=== PATIENT | male | born 1940 | race Caucasian/White ===

== ENCOUNTER 2024-08-28 14:33 | Inpatient (IN) ==
[2024-08-28 15:33] LABS: Urine Appearance CLEAR (CLEAR); Urine Blood NEGATIVE (NEG - TRACE); Urine Color YELLOW (STRAW/YELL.); Urine Urobilinogen Normal (NORMAL)
--- NOTE | 2024-08-28 15:45 | Emergency Department Note ---
HPI - General Adult General Chief complaint: SOB -Shortness of Breath Stated complaint: jl feet swell,Unable to urinate, loss of appetite Source: patient Mode of arrival: Limitations: no limitations Related Data Home Medications Medication Instructions Recorded Confirmed amlodipine 10 mg-benazepril 40 mg cap 01/04/24 capsule amlodipine 5 mg tablet mg 01/04/24 carvedilol 3.125 mg tablet mg 01/04/24 glipizide 10 mg tablet mg 01/04/24 nifedipine 30 mg tablet,extended mg PO 01/04/24 release simvastatin 40 mg tablet mg 01/04/24 sodium polystyrene sulfonate 15 ml 01/04/24 gram-sorbitol 20 gram/60 mL oral susp (SPS (with sorbitol)) tamsulosin 0.4 mg capsule mg PO 01/04/24 Allergies Allergy/AdvReac Type Severity Reaction Status Date / Time codeine Allergy Mild Verified 08/28/24 14:50 PFSH PFSH Medical History (Updated 01/04/24 @ 11:35 by Radha Hardwick RN) CAD (coronary artery disease) Diabetes Heart attack CKD (chronic kidney disease) HTN (hypertension) Social History Smoking status: former smoker Problems where you live: no known problems Highest level of school completed/degree received: high school Exam Constitutional: Vital Signs - 24 hr 08/28/24 14:40 08/28/24 16:00 Temperature 98.4 F Pulse Rate 74 77 Respiratory Rate 20 20 Blood Pressure 132/65 156/71 Pulse Oximetry 89 L 94 L Oxygen Delivery Me thod Room Air Nasal Cannula Oxygen Flow Rate 2 Course Vital Signs Vital signs: Vital Signs Temperature 98.4 F 08/28/24 14:40 Pulse Rate 74 08/28/24 14:40 Respiratory Rate 20 08/28/24 14:40 Blood Pressure 132/65 08/28/24 14:40 Pulse Oximetry 89 L 08/28/24 14:40 Oxygen Delivery Method Room Air 08/28/24 14:40 Temperature 98.6 F 08/29/24 00:00 Pulse Rate 68 08/29/24 00:00 Respiratory Rate 19 08/29/24 00:00 Blood Pressure 142/63 08/29/24 00:00 Pulse Oximetry 93 L 08/29/24 00:00 Oxygen Delivery Method Nasal Cannula 08/29/24 00:00 Oxygen Flow Rate 2 08/28/24 18:00 Medical Decision Making MDM Narrative Medical decision making narrative: Renal retention, CHF, COPD exacerbation, pneumonia, arthritis, BPH, UTI, prostatitis, Differential Diagnosis Differential Diagnosis: Renal retention, CHF, COPD exacerbation, pneumonia, arthritis, BPH, UTI, pr Medical Records Medical records reviewed: Yes I reviewed the patient's medical records Lab Data Lab results reviewed: Yes I reviewed the patient's lab results Labs: Lab Results 08/28/24 08/28/24 08/28/24 Range/Units 15:13 15:19 15:19 WBC (3.7-9.6) K/uL RBC (4.40-5.80) M/uL Hgb (14.0-17.4) gm/dL Hct (41.3-50.1) % MCV (81.9-96.5) fl MCH (27.6-33.7) pg MCHC (33.0-35.7) g/dl RDW (11.0-14.8) % Plt Count (142-355) K/uL MPV (6.0-10.4) fl Gran % (49.1-73.1) % Lymph % (Auto) (17.6-39.05) % Andrew % (Auto) (4.5-10.7) % Eos % (Auto) (0.0-4.0) % Baso % (Auto) (0.0-1.3) Lymph # (Auto) (0.8-2.9) [place] # (Auto) (0.2-0.8) Eos # (Auto) (0.0-0.3) Baso # (Auto) (0.0-0.1) Absolute Gran (auto) (2.0-6.2) ABG pH 7.41 (7.35-7.45) ABG pCO2 57 H* (35-45) mmHg ABG pO2 53 L* 157 (60-100) mmHg ABG PO2/FiO2 Ratio 0.34 ABG HCO3 36.4 H (22-26) mmo1/L ABG Total CO2 37.8 mmo1/L ABG O2 Saturation 87 L* (92-100) % ABG Base Excess 9.5 H (-2-2) mmo1/L A-a O2 Gradient 104 mmHg Respiratory Index 2.0 H (0-1) FiO2 32 % Sodium 143 (136-145) mmol/L Potassium 2.9 L (3.6-5.2) mmol/L Chloride 103.0 (98-107) mmol/L Carbon Dioxide 32 (21-32) mmol/L Anion Gap 8.0 (4-14) mEq/L BUN 23 H (7-18) mg/dL Creatinine 3.9 H* (0.6-1.3) mg/dL Estimated GFR 14.7 (>59.9) Glucose 30 L* (70-110) mg/dL Calcium 8.3 L (8.5-10.1) mg/dL Total Bilirubin 0.24 (0.0-1.0) mg/dL AST 26 (15-37) U/L ALT 16 L (30-65) U/L Alkaline Phosphatase 104 (50-136) U/L Troponin I High Sens (4.0-60.4) ng/L B-Natriuretic Peptide (0-100) pg/mL Total Protein 6.1 L (6.4-8.2) g/dL Albumin 2.4 L (3.4-5.0) g/dL Urine Color Yellow (STRAW/YELL.) Urine Appearance Clear (CLEAR) Ur Specific [place] 1.030 (1.001-1.035) Urine Protein 3+ (NEGATIVE) Urine Glucose (UA) Normal (NORMAL) Urine Ketones Negative (NEGATIVE) Urine Occult Blood Negative (NEG - TRACE) Urine Nitrite Negative (NEGATIVE) Urine Bilirubin Negative (NEGATIVE) Urine Urobilinogen Normal (NORMAL) Ur Leukocyte Esterase Negative (NEGATIVE) Fluid pH 6.0 (5 - 9) 08/28/24 08/28/24 Range/Units 15:45 17:40 WBC 9.2 (3.7-9.6) K/uL RBC 3.7 L (4.40-5.80) M/uL Hgb 11.5 L (14.0-17.4) gm/dL Hct 34.6 L (41.3-50.1) % MCV 94.5 (81.9-96.5) fl MCH 31.3 (27.6-33.7) pg MCHC 33.1 (33.0-35.7) g/dl RDW 16.5 H (11.0-14.8) % Plt Count 306 (142-355) K/uL MPV 7.7 (6.0-10.4) fl Gran % 71.5 (49.1-73.1) % Lymph % (Auto) 19.0 (17.6-39.05) % [place] % (Auto) 6.3 (4.5-10.7) % Eos % (Auto) 2.7 (0.0-4.0) % Baso % (Auto) 0.5 (0.0-1.3) Lymph # (Auto) 1.7 (0.8-2.9) [place] # (Auto) 0.6 (0.2-0.8) Eos # (Auto) 0.2 (0.0-0.3) Baso # (Auto) 0.1 (0.0-0.1) Absolute Gran (auto) 6.6 H (2.0-6.2) ABG pH (7.35-7.45) ABG pCO2 (35-45) mmHg ABG pO2 (60-100) mmHg ABG PO2/FiO2 Ratio ABG HCO3 (22-26) mmo1/L ABG Total CO2 mmo1/L ABG O2 Saturation (92-100) % ABG Base Excess (-2-2) mmo1/L A-a O2 Gradient mmHg Respiratory Index (0-1) FiO2 % Sodium (136-145) mmol/L Potassium (3.6-5.2) mmol/L Chloride (98-107) mmol/L Carbon Dioxide (21-32) mmol/L Anion Gap (4-14) mEq/L BUN (7-18) mg/dL Creatinine (0.6-1.3) mg/dL Estimated GFR (>59.9) Glucose (70-110) mg/dL Calcium (8.5-10.1) mg/dL Total Bilirubin (0.0-1.0) mg/dL AST (15-37) U/L ALT (30-65) U/L Alkaline Phosphatase (50-136) U/L Troponin I High Sens 44.80 (4.0-60.4) ng/L B-Natriuretic Peptide 408.0 H (0-100) pg/mL Total Protein (6.4-8.2) g/dL Albumin (3.4-5.0) g/dL Urine Color (STRAW/YELL.) Urine Appearance (CLEAR) Ur Specific [place] (1.001-1.035) Urine Protein (NEGATIVE) Urine Glucose (UA) (NORMAL) Urine Ketones (NEGATIVE) Urine Occult Blood (NEG - TRACE) Urine Nitrite (NEGATIVE) Urine Bilirubin (NEGATIVE) Urine Urobilinogen (NORMAL) Ur Leukocyte Esterase (NEGATIVE) Fluid pH (5 - 9) ECG Data Attestation: I have reviewed the pertinent ECG results. Prior ECG tracings: available for review Interpretation: EKG-atrial fibrillation,. Ventricular premature complexes, repolarization abnormal, rate 86, RR of 700 Smoking Cessation Time spent discussing smoking cessation with patient: 3 to 10 minutes Discharge Plan Discharge Patient Disposition: Admitted As Observation Condition: Stable Clinical Impression: Acute kidney injury superimposed on chronic kidney disease, Congestive heart failure, Acute exacerbation of chronic obstructive pulmonary disease, Acute on chronic urinary retention Interventions: ED Discharge Assessment Last Done: 08/28/24 18:22 ED Discharge Vital Sign Last Done: 08/28/24 18:23 Emergency Department Charge Sheet Last Done: 08/28/24 18:23 Time of Disposition: 17:08 Discharge Date/Time: 08/28/24 18:24
[2024-08-28 15:46] LABS: Potassium 2.9 mmol/L (3.6-5.2)
[2024-08-28 15:46] LABS: pH ABG 7.41 (7.35-7.45)
[2024-08-28 15:47] LABS: PCO2 ABG 57 mmHg (35-45); PO2 ABG 53 mmHg (60-100)
[2024-08-28 15:48] LABS: Base Excess ABG 9.5 mmo1/L (-2-2); Oxygen Saturation ABG 87 % (92-100)
[2024-08-28] MEDS ORDERED: DEXTROSE 50 % 25 GM/50 ML SYRINGE INJ ONE (15:50)
[2024-08-28 15:53] LABS: Basophils #(Absolute) Auto 0.1 (0.0-0.1); Basophils%(Percent) Auto 0.5 (0.0-1.3); Eosinophils#(Absolute)Auto 0.2 (0.0-0.3); Eosinophils%(Percent) Auto 2.7 % (0.0-4.0); Granulocytes % - Auto 71.5 % (49.1-73.1); Granulocytes#(Absolute)- Auto 6.6 (2.0-6.2); Hematocrit 34.6 % (41.3-50.1); Mean Corpuscular Volume 94.5 fl (81.9-96.5); Monocytes #(Absolute)- Auto 0.6 (0.2-0.8); Monocytes %(Percent)- Auto 6.3 % (4.5-10.7); Platelet Count 306 K/uL (142-355); White Blood Count 9.2 K/uL (3.7-9.6)
[2024-08-28] MEDS: DEXTROSE 50 % 25 GM/50 ML SYRINGE INJ ONE (15:53)
[2024-08-28] MEDS ORDERED: polyethylene glycoL 3350 17 GM POWD.PACK PO PRN (17:08)
[2024-08-28] MEDS ORDERED: MAGNESIUM, ALUMINUM HYDROXIDE 30 ML ORAL.SUSP PO PRN (17:08)
[2024-08-28] MEDS ORDERED: ACETAMINOPHEN 500 MG TABLET PO PRN (17:08)
[2024-08-28] MEDS ORDERED: DOCUSATE SODIUM 100 MG CAPSULE PO PRN (17:08)
[2024-08-29] MEDS: PANTOPRAZOLE SODIUM 40 MG TABLET.DR PO SCH (00:05)
[2024-08-29] MEDS: 0.9 % SODIUM CHLORIDE 1000 ML 1,000 ML IV SCH (00:23)
[2024-08-29] MEDS: TAMSULOSIN HCL 0.4 MG CAPSULE PO SCH ×2 (01:26→08:08)
[2024-08-29 04:56] LABS: Basophils%(Percent) Auto 0.5 (0.0-1.3); Eosinophils#(Absolute)Auto 0.5 (0.0-0.3); Eosinophils%(Percent) Auto 4.9 % (0.0-4.0); Granulocytes % - Auto 59.9 % (49.1-73.1); Granulocytes#(Absolute)- Auto 5.5 (2.0-6.2); Hematocrit 33.1 % (41.3-50.1); Mean Corpuscular Volume 93.2 fl (81.9-96.5); Monocytes #(Absolute)- Auto 0.9 (0.2-0.8); Monocytes %(Percent)- Auto 9.5 % (4.5-10.7); Platelet Count 285 K/uL (142-355); White Blood Count 9.3 K/uL (3.7-9.6)
[2024-08-29 05:09] LABS: Potassium 2.5 mmol/L (3.6-5.2)
[2024-08-29] MEDS: FUROSEMIDE 20 MG/2 ML VIAL IV SCH (10:18)
[2024-08-29] MEDS: POTASSIUM CHLORIDE 20 MEQ TAB.ER.PRT PO ONE ×2 (10:18→11:47)
--- NOTE | 2024-08-29 11:12 | History & Physical Report ---
<Statement entered by Jimi Holden NP - 08/30/24 08:13> I was contacted by the [facility] floor concerning increased shortness of breath on this patient. I evaluated the patient at bedside and found him to be slightly short of breath with increased work of breathing. Breath sounds showed mild rales bilaterally. Patient had been prescribed Lasix 40 mg IV however has not been given it. Nurse states that the patient had a hypotensive blood pressure at 90s over 60sHowever this was not confirmed with a manual blood pressure. Lasix had been withheld on the patient. After examination of the patient I found the blood pressure to be 177/90 and ordered that the patient be given Lasix 40 mg IVP. Repeat chest x-ray was performed which shows worsening of infiltrates. BNP is increasing slightly. Patient was placed on the Ventimask at 40 by respiratory. Patient appears to be breathing much better. 0720I spoke with Deep Haq nurse practitioner hospitalist concerning this patient. He is aware of the change in the patient's respiratory status and the interventions performed to improve. This documentation has been reviewed and approved. H&P: HPI History of Present Illness Chief complaint: acute on chronic renal injury, urinary retention Narrative: Mr. Bey was admitted on 08/28/24 from the ED with multiple complaints of SOB, BLE edema, decreased urine output. He has no outstanding complaint this morning other than the ones he had on arrival. BLE edema is +2-3. CBC and UA is within normal limits, while renal function appears to be at his baseline of BUN 22, creatinine 3.9, and patient states that he has only been voiding twice daily. K has dropped to 2.5 this morning. He does have intermittent SOB but has home O2 since last year and states that he is using it more frequently. ABG did show pO2 of 53 on admit. CXR was negative. Review of Systems Status of ROS 10 or more systems reviewed and unremark able except as noted in history and below Cardiovascular Reports: edema, swelling of feet/ankles and other (intermittent SOB, on home O2) Respiratory Reports: shortness of breath [facility] Medical History (Updated 08/29/24 @ 11:12 by Deep Haq NP) CHF (congestive heart failure) CAD (coronary artery disease) Diabetes Heart attack CKD (chronic kidney disease) HTN (hypertension) Surgical History (Updated 08/29/24 @ 11:23 by Deep Haq NP) Previous back surgery Social History Smoking status: former smoker Problems where you live: no known problems Highest level of school completed/degree received: high school Meds Home Medications and Allergies Home Medications Medication Instructions Recorded Confirmed Type amlodipine 10 mg-benazepril 40 mg 1 cap PO DAILY 01/04/24 08/29/24 History capsule amlodipine 5 mg tablet 5 mg PO DAILY 01/04/24 08/29/24 History carvedilol 3.125 mg tablet 3.125 mg PO BID 01/04/24 08/29/24 History glipizide 10 mg tablet 10 mg PO BID 01/04/24 08/29/24 History nifedipine 30 mg tablet,extended 30 mg PO DAILY 01/04/24 08/29/24 History release simvastatin 40 mg tablet 40 mg PO BEDTIME 01/04/24 08/29/24 History sodium polystyrene sulfonate 15 30 ml PO BID 01/04/24 08/29/24 History gram-sorbitol 20 gram/60 mL oral susp (SPS (with sorbitol)) tamsulosin 0.4 mg capsule 0.4 mg PO BID 01/04/24 08/29/24 History gabapentin 100 mg capsule 100 mg PO BID 08/29/24 08/29/24 History omeprazole 40 mg capsule,delayed 40 mg PO DAILY 08/29/24 08/29/24 History release Allergies Allergy/AdvReac Type Severity Reaction Status Date / Time codeine Allergy Mild Verified 08/28/24 14:50 Exam Constitutional: normal general appearance Vital Signs - 24 hr 08/28/24 14:40 08/28/24 16:00 08/28/24 18:00 Temperature 98.4 F Pulse Rate 74 77 69 Pulse Rate [Bilate ral] Respiratory Rate 20 20 20 Blood Pressure 132/65 156/71 151/61 Blood Pressure [Ri ght Arm] Pulse Oximetry 89 L 94 L 93 L Oxygen Delivery Me thod Room Air Nasal Cannula Nasal Cannula Oxygen Flow Rate 2 2 08/28/24 18:23 08/28/24 20:00 08/29/24 00:00 Temperature 98.3 F 98.6 F Pulse Rate 69 Pulse Rate [Bilate ral] 55 L 68 Respiratory Rate 20 20 19 Blood Pressure 151/61 Blood Pressure [Ri ght Arm] 119/86 142/63 Pulse Oximetry 94 L 94 L 93 L Oxygen Delivery Me thod Nasal Cannula Nasal Cannula Oxygen Flow Rate 08/29/24 04:00 08/29/24 07:44 Temperature 98.5 F 97.6 F Pulse Rate Pulse Rate [Bilate ral] 53 L 62 Respiratory Rate 17 19 Blood Pressure Blood Pressure [Ri ght Arm] 157/83 153/64 Pulse Oximetry 91 L 91 L Oxygen Delivery Me thod Nasal Cannula Nasal Cannula Oxygen Flow Rate 2 HENMT: normocephalic, head/scalp atraumatic, hearing grossly normal bilaterally, external ears normal, EACs normal, nasal mucous membranes normal, external nose normal and oral mucous membranes normal Eyes: PERRL, EOMs intact bilaterally, conjunctivae normal, no scleral icterus, no papilledema, fundi normal bilaterally and alignment normal Neck/C-Spine: visual inspection normal, trachea midline, cervical spine nontender and cervical full ROM noted Chest: inspection of chest normal and palpation of chest normal Respiratory: breath sounds equal bilaterally, normal respiratory effort and clear to auscultation bilaterally Cardiovascular: normal heart rate noted, regular rhythm noted, no gallop, no rub, no murmur and no clicks Gastrointestinal: abdomen normal to inspection, abdomen soft to palpation, nontender to palpation, nondistended and normoactive bowel sounds Genitourinary: no CVA tenderness, bladder normal to palpation and external appearance normal Back/Pelvis: spine normal to inspection Extremities: normal to inspection (+2-3 BLE edema) 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, no movement abnormality noted, no focal motor deficit noted, no sensory deficits noted, deep tendon reflexes 2+ bilaterally, gait normal, coordination normal and GCS normal Skin: skin color normal Assessment and Plan Assessment and Plan (1) CHF (congestive heart failure): Code(s): I50.9 - Heart failure, unspecified (2) Hypoxia: Code(s): R09.02 - Hypoxemia (3) Hypokalemia: Code(s): E87.6 - Hypokalemia Plan #1 Admit VS q4 Tele 1999 ADA diet Lasix 20mg IV BID #2 O2 NC #3 KCL 40meq now and TID Results Labs Labs: CBC 08/28/24 08/29/24 Range/Units 15:45 04:30 WBC 9.2 9.3 (3.7-9.6) K/uL RBC 3.7 L 3.6 L (4.40-5.80) M/uL Hgb 11.5 L 11.1 L (14.0-17.4) gm/dL Hct 34.6 L 33.1 L (41.3-50.1) % Plt Count 306 285 (142-355) K/uL Gran % 71.5 59.9 (49.1-73.1) % Lymph % (Auto) 19.0 25.2 (17.6-39.05) % [place] % (Auto) 6.3 9.5 (4.5-10.7) % Eos % (Auto) 2.7 4.9 H (0.0-4.0) % Baso % (Auto) 0.5 0.5 (0.0-1.3) Lymph # (Auto) 1.7 2.3 (0.8-2.9) [place] # (Auto) 0.6 0.9 H (0.2-0.8) Eos # (Auto) 0.2 0.5 H (0.0-0.3) Baso # (Auto) 0.1 0.0 (0.0-0.1) Absolute Gran (auto) 6.6 H 5.5 (2.0-6.2) CMP 08/28/24 08/29/24 15:13 04:30 Sodium 143 145 Potassium 2.9 L 2.5 L Chloride 103.0 104.0 Carbon Dioxide 32 35 H BUN 23 H 22 H Creatinine 3.9 H* 3.9 H* Glucose 30 L* 83 Calcium 8.3 L 7.9 L Liver Function 08/28/24 08/29/24 Range/Units 15:13 04:30 Total Bilirubin 0.24 0.19 (0.0-1.0) mg/dL AST 26 14 L (15-37) U/L ALT 16 L 11 L (30-65) U/L Alkaline Phosphatase 104 93 (50-136) U/L Albumin 2.4 L 2.2 L (3.4-5.0) g/dL Urine 08/28/24 15:13 Urine Color Yellow Urine Appearance Clear Ur Specific [place] 1.030 Urine Protein 3+ Urine Glucose (UA) Normal ABG ABG results: 08/28/24 15:19 ABG pH 7.41 ABG pCO2 57 H* ABG pO2 157 ABG HCO3 36.4 H ABG Total CO2 37.8 ABG O2 Saturation 87 L* ABG Base Excess 9.5 H Imaging Imaging ordered: Chest x-ray Radiologist's impression: [place] [address] [place] [address] XRay Report Signed Patient: German Bey MR#: [id number] : 1940 Acct:[id number] Age/Sex: 84 / M ADM Date: 08/28/24 Loc: [place] 1108-[address]: Deep Haq NP Ordering Physician: Izabela Lira DO Date of Service: 08/28/24 Procedure(s): XR chest 2V Accession Number(s): [id number] cc: Deep Haq NP; Izabela Lira DO~ EXAM: CHEST 2 VIEWS HISTORY: dyspnea and swellingdyspnea and swelling; COMPARISON: August 15, 2023 TECHNIQUE: Frontal and lateral views of the chest were submitted for interpretation. FINDINGS: The cardiomediastinal silhouette is within normal limits. Lungs show no focal consolidation, pneumothorax, or pleural fluid. Visualized bony structures are within normal limits. IMPRESSION: No acute cardiopulmonary process. THIS IS AN ELECTRONICALLY VERIFIED FINAL REPORT 08/29/2024 6:50 AM - Electronically signed by Ethel Morales MD Dictated By: Ethel Morales M.D. Signed By: 08/29/24 0650 DD/ 1519 TD/TT: 08/28/24 1536 Lamination Machine Operator:
[2024-08-29] MEDS ORDERED: cloNIDine HCL 0.1 MG TABLET PO PRN (11:30)
[2024-08-29] MEDS: POTASSIUM CHLORIDE 20 MEQ TAB.ER.PRT ONE (11:43)
[2024-08-29] MEDS: carvediloL 6.25 MG TABLET PO SCH (22:03)
[2024-08-30 06:10] LABS: Potassium 3.3 mmol/L (3.6-5.2)
[2024-08-30 06:45] LABS: Eosinophils%(Percent) Auto 5.4 % (0.0-4.0); Granulocytes % - Auto 56.1 % (49.1-73.1); Granulocytes#(Absolute)- Auto 4.4 (2.0-6.2); Hematocrit 30.6 % (41.3-50.1); Mean Corpuscular Volume 94.6 fl (81.9-96.5); Platelet Count 249 K/uL (142-355); White Blood Count 7.8 K/uL (3.7-9.6)
[2024-08-30 06:46] LABS: Basophils #(Absolute) Auto 0.1 (0.0-0.1); Eosinophils#(Absolute)Auto 0.4 (0.0-0.3); Monocytes #(Absolute)- Auto 0.7 (0.2-0.8)
[2024-08-30] MEDS ORDERED: TAMSULOSIN HCL 0.4 MG CAPSULE PO SCH (09:00)
[2024-08-30] MEDS: FUROSEMIDE 20 MG/2 ML VIAL IV SCH (11:20)
[2024-08-30] MEDS: AMLODIPINE BESYLATE 5 MG TABLET PO SCH (11:22)
[2024-08-30] MEDS: POTASSIUM CHLORIDE 20 MEQ TAB.ER.PRT PO SCH (11:22)
--- NOTE | 2024-08-30 12:33 | Progress Note ---
Progress Note: Subjective Subjective Interval history: Mr. Bey had an eventful night but complains he is tired this morning. He did go into respiratory distress last night and was increased to a venti mask. Lasix was temporarily held due to soft BP but eventually resumed. Edema has spread to upper extremities as well and more crackles present. ED provider did respond to call last night, conducted CXR showing worsening edema. Exam Constitutional: normal general appearance Vital Signs - 24 hr 08/29/24 16:00 08/29/24 19:36 08/29/24 22:03 Temperature 97.6 F 98.2 F Pulse Rate Pulse Rate [Bilate ral] 75 76 Respiratory Rate 21 19 Blood Pressure 94/44 Blood Pressure [Ri ght Arm] 122/65 94/44 Pulse Oximetry 90 L 95 Oxygen Delivery Me thod Nasal Cannula Nasal Cannula Oxygen Flow Rate 2 Fraction of Inspir ed Oxygen 08/29/24 22:03 08/29/24 23:51 08/30/24 00:00 Temperature 97.9 F Pulse Rate 76 Pulse Rate [Bilate ral] 93 H Respiratory Rate 25 H Blood Pressure 94/44 154/78 Blood Pressure [Ri ght Arm] 154/78 Pulse Oximetry 94 L Oxygen Delivery Me thod Venturi Mask Oxygen Flow Rate Fraction of Inspir ed Oxygen 08/30/24 00:14 08/30/24 00:28 08/30/24 03:58 Temperature 98.3 F Pulse Rate Pulse Rate [Bilate ral] 77 Respiratory Rate 23 20 Blood Pressure Blood Pressure [Ri ght Arm] 143/56 Pulse Oximetry 95 97 95 Oxygen Delivery Me thod Venturi Mask Venturi Mask Venturi Mask Oxygen Flow Rate 12 Fraction of Inspir ed Oxygen 40 40 08/30/24 04:21 08/30/24 08:00 08/30/24 12:00 Temperature 97.7 F 98.1 F Pulse Rate Pulse Rate [Bilate ral] 73 74 Respiratory Rate 20 20 Blood Pressure 143/56 Blood Pressure [Ri ght Arm] 112/61 160/67 Pulse Oximetry 93 L 97 Oxygen Delivery Me thod Simple Mask Simple Mask Oxygen Flow Rate Fraction of Inspir ed Oxygen HENMT: normocephalic, head/scalp atraumatic, hearing grossly normal bilaterally, external ears normal, EACs normal, nasal mucous membranes normal, external nose normal and oral mucous membranes normal Eyes: PERRL, EOMs intact bilaterally, conjunctivae normal, no scleral icterus, no papilledema, fundi normal bilaterally and alignment normal Neck/C-Spine: visual inspection normal, trachea midline, cervical spine nontender and cervical full ROM noted Chest: inspection of chest normal and palpation of chest normal Respiratory: breath sounds equal bilaterally and normal respiratory effort Bilateral base crackles Cardiovascular: normal heart rate noted, regular rhythm noted, no gallop, no rub, no murmur and no clicks Gastrointestinal: abdomen normal to inspection, abdomen soft to palpation, nontender to palpation, nondistended and normoactive bowel sounds Genitourinary: no CVA tenderness, bladder normal to palpation and external appearance normal Back/Pelvis: spine normal to inspection Extremities: normal to inspection (+2-3 BLE edema) +2 edema BLE, +3 BUE edema 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, no movement abnormality noted, no focal motor deficit noted, no sensory deficits noted, deep tendon reflexes 2+ bilaterally, gait normal, coordination normal and GCS normal Psychiatry: mental status grossly normal and oriented x3 Skin: skin color normal Progress Note: Objective Labs Labs: CBC 08/30/24 Range/Units 05:10 WBC 7.8 (3.7-9.6) K/uL RBC 3.2 L (4.40-5.80) M/uL Hgb 10.3 L (14.0-17.4) gm/dL Hct 30.6 L (41.3-50.1) % Plt Count 249 (142-355) K/uL Gran % 56.1 (49.1-73.1) % Lymph % (Auto) 28.5 (17.6-39.05) % [place] % (Auto) 9.0 (4.5-10.7) % Eos % (Auto) 5.4 H (0.0-4.0) % Baso % (Auto) 1.0 (0.0-1.3) Lymph # (Auto) 2.2 (0.8-2.9) [place] # (Auto) 0.7 (0.2-0.8) Eos # (Auto) 0.4 H (0.0-0.3) Baso # (Auto) 0.1 (0.0-0.1) Absolute Gran (auto) 4.4 (2.0-6.2) CMP 08/30/24 05:10 Sodium 145 Potassium 3.3 L Chloride 107.0 Carbon Dioxide 35 H BUN 25 H Creatinine 3.8 H* Glucose 190 H Calcium 8.1 L Urine 08/28/24 15:13 Urine Color Yellow Urine Appearance Clear Ur Specific [place] 1.030 Urine Protein 3+ Urine Glucose (UA) Normal Imaging Chest x-ray: Radiologist's impression: [address] [address] XRay Report Signed Patient: German Bey MR#: [id number] : 1940 Acct:[id number] Age/Sex: 84 / M ADM Date: 08/28/24 Loc: [place] 1108-[address]: Deep Haq NP Ordering Physician: Izabela Lira DO Date of Service: 08/28/24 Procedure(s): XR chest 2V Accession Number(s): [id number] cc: Deep Haq NP; Izabela Lira DO~ EXAM: CHEST 2 VIEWS HISTORY: dyspnea and swellingdyspnea and swelling; COMPARISON: August 15, 2023 TECHNIQUE: Frontal and lateral views of the chest were submitted for interpretation. FINDINGS: The cardiomediastinal silhouette is within normal limits. Lungs show no focal consolidation, pneumothorax, or pleural fluid. Visualized bony structures are within normal limits. IMPRESSION: No acute cardiopulmonary process. THIS IS AN ELECTRONICALLY VERIFIED FINAL REPORT 08/29/2024 6:50 AM - Electronically signed by Ethel Morales MD Dictated By: Ethel Morales M.D. Signed By: 08/29/24 0650 DD/ 1519 TD/TT: 08/28/24 1536 Tourist Camp Attendant: [address] [address] XRay Report Signed Patient: German Bey MR#: [id number] : 1940 Acct:[id number] Age/Sex: 84 / M ADM Date: 08/28/24 Loc: [place] 1108-[address]: Deep Haq NP Ordering Physician: Jimi Holden NP Date of Service: 08/30/24 Procedure(s): XR chest 1V Accession Number(s): [id number] cc: Jimi Holden NP; Uen,Deep SURGICAL NURSE PRACTITIONER~ EXAM: AP chest HISTORY: SOB COMPARISON: 08/28/2024 FINDINGS: Heart size remains upper normal in transverse dimension. Interval increase in interstitial pulmonary process bilaterally without evidence for lobar consolidation, extrapulmonary air complication. Apparent elevation of the right diaphragm can be simulated by a subpulmonic effusion. IMPRESSION: 1. Increasing interstitial pulmonary infiltrates concerning for inflammatory or congestive abnormality compared to 1 day prior. 2. Possible right subpulmonic effusion. Decubitus views would be helpful to confirm or exclude. THIS IS AN ELECTRONICALLY VERIFIED FINAL REPORT 08/30/2024 6:41 AM - Electronically signed by Landon Gibbons MD Dictated By: Landon Gibbons MD Signed By: 08/30/24 0641 DD/ 0044 TD/TT: 08/30/24 0053 Tourist Camp Attendant: Progress Note: A&P Assessment and Plan (1) CHF (congestive heart failure): (2) Hypoxia: (3) Hypokalemia: Plan #1 Admit VS q4 Tele 1999 ADA diet Fluid restrict 1500ml/day Increase Lasix 40mg IV BID #2 O2 NC to titrate #3 KCL 40meq now and BID Fall Risk Details [place] Fall Scale Risk Level: High Fall Risk Current Medications: Current Medications Acetaminophen (Acetaminophen 500 Mg Tablet) 1,000 mg PO Q6H PRN PRN Reason: MILD PAIN SCALE 1-4 Amlodipine Besylate (Amlodipine Besylate 5 Mg Tablet) 5 mg PO DAILY [facility] Last Admin: 08/30/24 11:22 Dose: 5 mg Carvedilol (Carvedilol 6.25 Mg Tablet) 3.125 mg PO BID [facility] Last Admin: 08/30/24 11:21 Dose: 3.125 mg Clonidine HCl (Clonidine Hcl 0.1 Mg Tablet) 0.1 mg PO Q8H PRN PRN Reason: HTN Docusate Sodium (Docusate Sodium 100 Mg Capsule) 100 mg PO DAILY PRN PRN Reason: Constipation Furosemide (Furosemide 20 Mg/2 Ml Vial) 40 mg IV Q12H [facility] Last Admin: 08/30/24 11:20 Dose: 40 mg Insulin Human Regular (Insulin Regular, Human 100 Unit/Ml) 0 unit SUBQ PROTOCOL PRN; Protocol PRN Reason: Hyperglycemia Magnesium Hydroxide (Magnesium, Aluminum Hydroxide 30 Ml Oral.Susp) 30 ml PO DAILY PRN PRN Reason: Constipation Ondansetron HCl (Ondansetron Hcl/Pf 4 Mg/2 Ml Vial) 4 mg INJ Q6H PRN PRN Reason: Nausea And Vomiting Pantoprazole Sodium (Pantoprazole Sodium 40 Mg Tablet.Dr) 40 mg PO DAILY [facility] Last Admin: 08/30/24 11:22 Dose: 40 mg Polyethylene Glycol (Polyethylene Glycol 3350 17 Gm Powd.Pack) 17 gm PO DAILY PRN PRN Reason: Constipation Potassium Chloride (Potassium Chloride 20 Meq Tab.Er.Prt) 40 meq PO BID [facility] Stop: 08/30/24 21:01 Last Admin: 08/30/24 11:22 Dose: 40 meq Tamsulosin HCl (Tamsulosin Hcl 0.4 Mg Capsule) 0.4 mg PO BID [facility] Last Admin: 08/30/24 11:21 Dose: 0.4 mg Time Spent With Patient Time: Total time spent is greater than 50% in coordination of care (as documented) at patient's floor/unit and/or counseling patient:
[2024-08-30] MEDS: metOLazone 5 MG TABLET PO SCH (20:16)
[2024-08-31 06:08] LABS: Basophils%(Percent) Auto 0.6 (0.0-1.3); Eosinophils#(Absolute)Auto 0.7 (0.0-0.3); Eosinophils%(Percent) Auto 8.7 % (0.0-4.0); Granulocytes % - Auto 56.9 % (49.1-73.1); Granulocytes#(Absolute)- Auto 4.3 (2.0-6.2); Hematocrit 30.5 % (41.3-50.1); Mean Corpuscular Volume 94.2 fl (81.9-96.5); Monocytes #(Absolute)- Auto 0.6 (0.2-0.8); Monocytes %(Percent)- Auto 7.6 % (4.5-10.7); Platelet Count 245 K/uL (142-355); White Blood Count 7.6 K/uL (3.7-9.6)
[2024-08-31 06:22] LABS: Potassium 3.3 mmol/L (3.6-5.2)
--- NOTE | 2024-08-31 08:18 | Progress Note ---
Progress Note: Subjective Subjective Interval history: Mr. Bey states that he has had some improvement but still feels tired. He did manage to eat breakfast this morning. He had a 2lb weight loss and greater than 3L output the last 24hrs after zaroxolyn was added late yesterday evening. K is still low at 3.2 we will increase his replacement. BNP still trending upwards but upper extremity edema has decreased to +1, while lower extremities +3; lungs are moving more air that yesterday. 1530 O2 continues to desat. DNR confirmed with patient. Started on hiflo, Rocephin, and Zpak. Exam Constitutional: normal general appearance Vital Signs - 24 hr 08/30/24 11:50 08/30/24 12:00 08/30/24 12:00 Temperature 98.1 F Pulse Rate Pulse Rate [Bilate ral] 74 Respiratory Rate 20 Blood Pressure 160/67 Blood Pressure [Ri ght Arm] 160/67 Pulse Oximetry 97 Oxygen Delivery Me thod Simple Mask Nasal Cannula Oxygen Flow Rate Fraction of Inspir ed Oxygen 35 08/30/24 16:00 08/30/24 19:35 08/30/24 19:36 Temperature 97.8 F Pulse Rate Pulse Rate [Bilate ral] 64 78 Respiratory Rate 19 Blood Pressure Blood Pressure [Ri ght Arm] 128/59 Pulse Oximetry 98 92 L Oxygen Delivery Me thod Simple Mask Venturi Mask Oxygen Flow Rate 9 Fraction of Inspir ed Oxygen 35 08/30/24 19:42 08/30/24 20:14 08/30/24 21:42 Temperature 98.1 F Pulse Rate 78 Pulse Rate [Bilate ral] 83 Respiratory Rate 16 Blood Pressure 151/69 Blood Pressure [Ri ght Arm] 151/69 Pulse Oximetry 90 L Oxygen Delivery Me thod Room Air Oxygen Flow Rate Fraction of Inspir ed Oxygen 08/30/24 23:02 08/30/24 23:38 08/31/24 03:47 Temperature 98.2 F 97.8 F Pulse Rate Pulse Rate [Bilate ral] 61 69 Respiratory Rate 19 17 17 Blood Pressure Blood Pressure [Ri ght Arm] 136/63 156/112 Pulse Oximetry 93 L 92 L 92 L Oxygen Delivery Me thod Venturi Mask Room Air Room Air Oxygen Flow Rate Fraction of Inspir ed Oxygen 08/31/24 04:29 08/31/24 07:51 Temperature 97.7 F Pulse Rate Pulse Rate [Bilate ral] 63 Respiratory Rate 20 Blood Pressure Blood Pressure [Ri ght Arm] 148/88 158/71 Pulse Oximetry 91 L Oxygen Delivery Me thod Simple Mask Oxygen Flow Rate Fraction of Inspir ed Oxygen HENMT: normocephalic, head/scalp atraumatic, hearing grossly normal bilaterally, external ears normal, EACs normal, nasal mucous membranes normal, external nose normal and oral mucous membranes normal Eyes: PERRL, EOMs intact bilaterally, conjunctivae normal, no scleral icterus, no papilledema, fundi normal bilaterally and alignment normal Neck/C-Spine: visual inspection normal, trachea midline, cervical spine nontender and cervical full ROM noted Chest: inspection of chest normal and palpation of chest normal Respiratory: breath sounds equal bilaterally and normal respiratory effort Bilateral wheezing Cardiovascular: normal heart rate noted, regular rhythm noted, no gallop, no rub, no murmur and no clicks Gastrointestinal: abdomen normal to inspection, abdomen soft to palpation, nontender to palpation, nondistended and normoactive bowel sounds Genitourinary: no CVA tenderness, bladder normal to palpation and external appearance normal Back/Pelvis: spine normal to inspection Extremities: normal to inspection (+2-3 BLE edema) +2 edema BLE, +3 BUE edema 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, no movement abnormality noted, no focal motor deficit noted, no sensory deficits noted, deep tendon reflexes 2+ bilaterally, gait normal, speech normal, coordination normal and GCS normal Psychiatry: mental status grossly normal and oriented x3 Skin: skin color normal Progress Note: Objective Labs Labs: CBC 08/31/24 Range/Units 05:58 WBC 7.6 (3.7-9.6) K/uL RBC 3.2 L (4.40-5.80) M/uL Hgb 10.1 L (14.0-17.4) gm/dL Hct 30.5 L (41.3-50.1) % Plt Count 245 (142-355) K/uL Gran % 56.9 (49.1-73.1) % Lymph % (Auto) 26.2 (17.6-39.05) % [place] % (Auto) 7.6 (4.5-10.7) % Eos % (Auto) 8.7 H (0.0-4.0) % Baso % (Auto) 0.6 (0.0-1.3) Lymph # (Auto) 2.0 (0.8-2.9) [place] # (Auto) 0.6 (0.2-0.8) Eos # (Auto) 0.7 H (0.0-0.3) Baso # (Auto) 0.0 (0.0-0.1) Absolute Gran (auto) 4.3 (2.0-6.2) CMP 08/31/24 05:58 Sodium 145 Potassium 3.3 L Chloride 106.0 Carbon Dioxide 37 H BUN 24 H Creatinine 3.4 H Glucose 94 Calcium 8.5 Urine 08/28/24 15:13 Urine Color Yellow Urine Appearance Clear Ur Specific [place] 1.030 Urine Protein 3+ Urine Glucose (UA) Normal Imaging Chest x-ray: Radiologist's impression: [place] [place] [address] [place] [address] XRay Report Signed Patient: German Bey MR#: [id number] : 1940 Acct:[id number] Age/Sex: 84 / M ADM Date: 08/28/24 Loc: [place] 1108-[address]: Deep Haq NP Ordering Physician: Jimi Holden NP Date of Service: 08/30/24 Procedure(s): XR chest 1V Accession Number(s): [id number] cc: Jimi Holden NP; Deep Haq NP~ EXAM: AP chest HISTORY: SOB COMPARISON: 08/28/2024 FINDINGS: Heart size remains upper normal in transverse dimension. Interval increase in interstitial pulmonary process bilaterally without evidence for lobar consolidation, extrapulmonary air complication. Apparent elevation of the right diaphragm can be simulated by a subpulmonic effusion. IMPRESSION: 1. Increasing interstitial pulmonary infiltrates concerning for inflammatory or congestive abnormality compared to 1 day prior. 2. Possible right subpulmonic effusion. Decubitus views would be helpful to confirm or exclude. 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 Extractor: Progress Note: A&P Assessment and Plan (1) CHF (congestive heart failure): (2) Hypoxia: Assessment and Plan: Hiflo Respiratory to titrate Rocephin 1gm IV daily Zithromax 500mg po Daily (3) Hypokalemia: Plan #1 Admit VS q4 Tele 1999 ADA diet Fluid restrict 1500ml/day Lasix 40mg IV BID Add Zaroxolyn 5mg po BID #2 O2 NC to titrate #3 Increase KCL 40meq TID Fall Risk Details Umaña Fall Scale Risk Level: Moderate Fall Risk Current Medications: Current Medications Acetaminophen (Acetaminophen 500 Mg Tablet) 1,000 mg PO Q6H PRN PRN Reason: MILD PAIN SCALE 1-4 Amlodipine Besylate (Amlodipine Besylate 5 Mg Tablet) 5 mg PO DAILY [facility] Last Admin: 08/30/24 11:22 Dose: 5 mg Carvedilol (Carvedilol 6.25 Mg Tablet) 3.125 mg PO BID [facility] Last Admin: 08/30/24 20:14 Dose: 3.125 mg Clonidine HCl (Clonidine Hcl 0.1 Mg Tablet) 0.1 mg PO Q8H PRN PRN Reason: HTN Docusate Sodium (Docusate Sodium 100 Mg Capsule) 100 mg PO DAILY PRN PRN Reason: Constipation Furosemide (Furosemide 20 Mg/2 Ml Vial) 40 mg IV Q12H [facility] Last Admin: 08/30/24 20:15 Dose: 40 mg Insulin Human Regular (Insulin Regular, Human 100 Unit/Ml) 0 unit SUBQ PROTOCOL PRN; Protocol PRN Reason: Hyperglycemia Magnesium Hydroxide (Magnesium, Aluminum Hydroxide 30 Ml Oral.Susp) 30 ml PO DAILY PRN PRN Reason: Constipation Metolazone (Metolazone 5 Mg Tablet) 5 mg PO BID [facility] Ondansetron HCl (Ondansetron Hcl/Pf 4 Mg/2 Ml Vial) 4 mg INJ Q6H PRN PRN Reason: Nausea And Vomiting Pantoprazole Sodium (Pantoprazole Sodium 40 Mg Tablet.Dr) 40 mg PO DAILY [facility] Last Admin: 08/30/24 11:22 Dose: 40 mg Polyethylene Glycol (Polyethylene Glycol 3350 17 Gm Powd.Pack) 17 gm PO DAILY PRN PRN Reason: Constipation Potassium Chloride (Potassium Chloride 20 Meq Tab.Er.Prt) 40 meq PO ONCE ONE Stop: 08/31/24 09:01 Tamsulosin HCl (Tamsulosin Hcl 0.4 Mg Capsule) 0.4 mg PO BID [facility] Last Admin: 08/30/24 20:14 Dose: 0.4 mg Time Spent With Patient Time: Total time spent is greater than 50% in coordination of care (as documented) at patient's floor/unit and/or counseling patient:
[2024-08-31] MEDS: POTASSIUM CHLORIDE 20 MEQ TAB.ER.PRT PO ONE (08:31)
[2024-08-31] MEDS: metOLazone 5 MG TABLET PO SCH (08:31)
[2024-08-31] MEDS: ONDANSETRON HCL/PF 4 MG/2 ML VIAL INJ PRN (14:40)
[2024-08-31] MEDS: CEFTRIAXONE SODIUM 2 GM VIAL IV SCH (17:21)
[2024-08-31] MEDS: AZITHROMYCIN 250 MG TABLET PO SCH (17:47)
[2024-08-31] MEDS: WATER IV SCH (17:48)
[2024-08-31] MEDS: DEXTROSE 5% IV SCH (17:48)
[2024-08-31] MEDS: CEFTRIAXONE SODIUM IV SCH (17:48)
[2024-09-01 05:27] LABS: Basophils #(Absolute) Auto 0.1 (0.0-0.1); Basophils%(Percent) Auto 0.8 (0.0-1.3); Eosinophils#(Absolute)Auto 0.7 (0.0-0.3); Eosinophils%(Percent) Auto 8.3 % (0.0-4.0); Granulocytes % - Auto 55.5 % (49.1-73.1); Granulocytes#(Absolute)- Auto 4.4 (2.0-6.2); Hematocrit 29.8 % (41.3-50.1); Mean Corpuscular Volume 94.8 fl (81.9-96.5); Monocytes #(Absolute)- Auto 0.7 (0.2-0.8); Monocytes %(Percent)- Auto 8.9 % (4.5-10.7); Platelet Count 229 K/uL (142-355)
[2024-09-01 05:48] LABS: Potassium 3.8 mmol/L (3.6-5.2)
[2024-09-01 09:19] LABS: Bilirubin Direct 0.1 mg/dL (0.0-0.30)
[2024-09-01] MEDS: METHYLPREDNISOLONE SOD SUCC/PF 40 MG/ML VIAL INJ SCH (09:20)
[2024-09-01] MEDS: BUDESONIDE 0.5 MG/2 ML AMPUL.NEB INH SCH (09:30)
[2024-09-01] MEDS: IPRATROPIUM/ALBUTEROL SULFATE 3 ML AMPUL.NEB INH SCH (09:31)
--- NOTE | 2024-09-01 13:30 | Progress Note ---
Progress Note: Subjective Subjective Interval history: Patient continues to need high flow O2. Exam Exam: Patient in NAD. Constitutional: normal general appearance, no apparent distress, abnormal body habitus (obese), limitations noted and alert Vital Signs - 24 hr 08/31/24 16:00 08/31/24 19:56 08/31/24 19:58 Temperature 97.7 F 97.9 F Pulse Rate Pulse Rate [Bilate ral] 71 78 64 Respiratory Rate 22 17 24 Blood Pressure Blood Pressure [Ri ght Arm] 142/70 147/69 Pulse Oximetry 90 L 88 L Oxygen Delivery Me thod High Flow Nasal Ca nnula Room Air Oxygen Flow Rate Fraction of Inspir ed Oxygen 08/31/24 20:23 08/31/24 20:25 08/31/24 23:22 Temperature Pulse Rate 72 Pulse Rate [Bilate ral] Respiratory Rate 24 Blood Pressure Blood Pressure [Ri ght Arm] Pulse Oximetry 92 L 94 L Oxygen Delivery Me thod High Flow Nasal Ca nnula High Flow Nasal Ca nnula Oxygen Flow Rate 30 50 Fraction of Inspir ed Oxygen 40 40 08/31/24 23:44 08/31/24 23:56 09/01/24 03:54 Temperature 98.5 F 98.7 F Pulse Rate Pulse Rate [Bilate ral] 72 77 Respiratory Rate 19 19 Blood Pressure 143/50 Blood Pressure [Ri ght Arm] 143/50 143/55 Pulse Oximetry 85 L 94 L Oxygen Delivery Me thod Room Air Room Air Oxygen Flow Rate Fraction of Inspir ed Oxygen 09/01/24 07:51 09/01/24 09:20 09/01/24 09:21 Temperature 98.9 F Pulse Rate 72 Pulse Rate [Bilate ral] 72 Respiratory Rate 21 Blood Pressure 122/68 122/68 Blood Pressure [Ri ght Arm] 122/68 Pulse Oximetry 95 Oxygen Delivery Me thod High Flow Nasal Ca nnula Oxygen Flow Rate Fraction of Inspir ed Oxygen 09/01/24 09:21 09/01/24 09:31 09/01/24 09:50 Temperature Pulse Rate Pulse Rate [Bilate ral] Respiratory Rate Blood Pressure 122/68 148/50 Blood Pressure [Ri ght Arm] Pulse Oximetry 92 L Oxygen Delivery Me thod Oxygen Flow Rate Fraction of Inspir ed Oxygen 09/01/24 11:13 09/01/24 12:00 Temperature 98.1 F Pulse Rate Pulse Rate [Bilate ral] 79 Respiratory Rate 19 Blood Pressure Blood Pressure [Ri ght Arm] 132/66 Pulse Oximetry 91 L 95 Oxygen Delivery Me thod Nasal Cannula Oxygen Flow Rate 4 Fraction of Inspir ed Oxygen HENMT: normocephalic, head/scalp atraumatic, hearing grossly normal bilaterally, external ears normal, EACs normal, nasal mucous membranes normal, external nose normal and oral mucous membranes normal Eyes: PERRL, EOMs intact bilaterally, conjunctivae normal, no scleral icterus, no papilledema, fundi normal bilaterally and alignment normal Neck/C-Spine: visual inspection normal, trachea midline, cervical spine nontender and cervical full ROM noted Chest: inspection of chest normal and palpation of chest normal Respiratory: breath sounds equal bilaterally, normal respiratory effort and clear to auscultation bilaterally Bilateral wheezing Cardiovascular: normal heart rate noted, regular rhythm noted, no gallop, no rub, no murmur and no clicks Gastrointestinal: abdomen normal to inspection, abdomen soft to palpation, nontender to palpation, nondistended and normoactive bowel sounds Genitourinary: no CVA tenderness, bladder normal to palpation and external appearance normal Back/Pelvis: spine normal to inspection Extremities: normal to inspection (+2-3 BLE edema) +2 edema BLE, +3 BUE edema 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, no movement abnormality noted, no focal motor deficit noted, no sensory deficits noted, deep tendon reflexes 2+ bilaterally, gait normal, speech normal, coordination normal and GCS normal Psychiatry: mental status grossly normal and oriented x3 Skin: skin color normal Progress Note: Objective Labs Labs: CBC 09/01/24 Range/Units 05:20 WBC 8.0 (3.7-9.6) K/uL RBC 3.1 L (4.40-5.80) M/uL Hgb 10.1 L (14.0-17.4) gm/dL Hct 29.8 L (41.3-50.1) % Plt Count 229 (142-355) K/uL Gran % 55.5 (49.1-73.1) % Lymph % (Auto) 26.5 (17.6-39.05) % [place] % (Auto) 8.9 (4.5-10.7) % Eos % (Auto) 8.3 H (0.0-4.0) % Baso % (Auto) 0.8 (0.0-1.3) Lymph # (Auto) 2.1 (0.8-2.9) [place] # (Auto) 0.7 (0.2-0.8) Eos # (Auto) 0.7 H (0.0-0.3) Baso # (Auto) 0.1 (0.0-0.1) Absolute Gran (auto) 4.4 (2.0-6.2) CMP 09/01/24 05:20 Sodium 142 Potassium 3.8 Chloride 102.0 Carbon Dioxide 38 H BUN 28 H Creatinine 3.5 H Glucose 140 H Calcium 8.3 L Liver Function 09/01/24 Range/Units 05:20 Total Bilirubin 0.19 (0.0-1.0) mg/dL Direct Bilirubin 0.10 (0.0-0.30) mg/dL Indirect Bilirubin 0.09 mg/dL AST 16 (15-37) U/L ALT 16 L (30-65) U/L Alkaline Phosphatase 79 (50-136) U/L Albumin 2.3 L (3.4-5.0) g/dL Urine 08/28/24 15:13 Urine Color Yellow Urine Appearance Clear Ur Specific [place] 1.030 Urine Protein 3+ Urine Glucose (UA) Normal ABG Attestation: I have reviewed the pertinent ABG results. Imaging Chest x-ray: Radiologist's impression: EXAM: XR CHEST 2V HISTORY: pneumonia, chfpneumonia, chf; COMPARISON: 08/29/2024 FINDINGS: AP projection is mismarked left to right. Abnormal opacity in the lower lungs could be atelectasis or pneumonia. A small pleural effusion is seen posteriorly, but not well appreciated on the frontal view. Probably on the left side. Cardiomegaly is present. The bones are unremarkable. EKG leads are noted. IMPRESSION: 1. Basilar atelectasis or pneumonia 2. Small pleural effusion, probably left side 3. Cardiomegaly Progress Note: A&P Assessment and Plan (1) CHF (congestive heart failure): Qualifiers: Heart failure type: combined systolic and diastolic Heart failure chronicity: acute on chronic Qualified Code(s): I50.43 - Acute on chronic combined systolic (congestive) and diastolic (congestive) heart failure (2) Hypoxia: Assessment and Plan: Hiflo Respiratory to titrate Rocephin 1gm IV daily Zithromax 500mg po Daily (3) Hypokalemia: Plan #1 Admit VS q4 Tele 1999 ADA diet Fluid restrict 1500ml/day Lasix 40mg IV BID Add Zaroxolyn 5mg po BID albumin x 1 ABG ECHO Smart vest duo nebs and pulmicort bid #2 O2 NC to titrate high flow and wean as tolerated #3 Increase KCL 40meq TID Fall Risk Details Umaña Fall Scale Risk Level: Moderate Fall Risk Current Medications: Current Medications Acetaminophen (Acetaminophen 500 Mg Tablet) 1,000 mg PO Q6H PRN PRN Reason: MILD PAIN SCALE 1-4 Albuterol Sulfate (Ipratropium/Albuterol Sulfate 3 Ml Ampul.Neb) 3 ml INH RQ4 [facility] Last Admin: 09/01/24 11:12 Dose: 3 ml Amlodipine Besylate (Amlodipine Besylate 5 Mg Tablet) 5 mg PO DAILY [facility] Last Admin: 09/01/24 09:21 Dose: 5 mg Azithromycin (Azithromycin 250 Mg Tablet) 500 mg PO Q24H [facility] Last Admin: 08/31/24 17:47 Dose: 500 mg Budesonide (Budesonide 0.5 Mg/2 Ml Ampul.Neb) 0.5 mg INH RBID [facility] Last Admin: 09/01/24 09:30 Dose: 0.5 mg Carvedilol (Carvedilol 6.25 Mg Tablet) 3.125 mg PO BID [facility] Last Admin: 09/01/24 09:21 Dose: 3.125 mg Clonidine HCl (Clonidine Hcl 0.1 Mg Tablet) 0.1 mg PO Q8H PRN PRN Reason: HTN Docusate Sodium (Docusate Sodium 100 Mg Capsule) 100 mg PO DAILY PRN PRN Reason: Constipation Furosemide (Furosemide 20 Mg/2 Ml Vial) 40 mg IV Q12H [facility] Last Admin: 09/01/24 09:20 Dose: 40 mg Ceftriaxone Sodium 1 gm/ (Dextrose) 50 mls @ 100 mls/hr IV Q24H [facility] Last Infusion: 08/31/24 18:18 Dose: Infused Insulin Human Regular (Insulin Regular, Human 100 Unit/Ml) 0 unit SUBQ PROTOCOL PRN; Protocol PRN Reason: Hyperglycemia Magnesium Hydroxide (Magnesium, Aluminum Hydroxide 30 Ml Oral.Susp) 30 ml PO DAILY PRN PRN Reason: Constipation Methylprednisolone Sodium Succinate (Methylprednisolone Sod Succ/Pf 40 Mg/Ml Vial) 40 mg INJ Q12H [facility] Last Admin: 09/01/24 09:20 Dose: 40 mg Metolazone (Metolazone 5 Mg Tablet) 5 mg PO BID [facility] Last Admin: 09/01/24 09:21 Dose: 5 mg Ondansetron HCl (Ondansetron Hcl/Pf 4 Mg/2 Ml Vial) 4 mg INJ Q6H PRN PRN Reason: Nausea And Vomiting Last Admin: 08/31/24 14:40 Dose: 4 mg Pantoprazole Sodium (Pantoprazole Sodium 40 Mg Tablet.Dr) 40 mg PO DAILY [facility] Last Admin: 09/01/24 09:21 Dose: 40 mg Polyethylene Glycol (Polyethylene Glycol 3350 17 Gm Powd.Pack) 17 gm PO DAILY PRN PRN Reason: Constipation Tamsulosin HCl (Tamsulosin Hcl 0.4 Mg Capsule) 0.4 mg PO BID [facility] Last Admin: 09/01/24 09:21 Dose: 0.4 mg Time Spent With Patient Time: Total time spent is greater than 50% in coordination of care (as documented) at patient's floor/unit and/or counseling patient: Time with patient: greater than 35 minutes
[2024-09-01 13:44] LABS: pH ABG 7.35 (7.35-7.45)
[2024-09-01 13:45] LABS: Base Excess ABG 10.8 mmo1/L (-2-2); Oxygen Saturation ABG 86 % (92-100); PCO2 ABG 71 mmHg (35-45); PO2 ABG 54 mmHg (60-100)
[2024-09-01] MEDS: ALBUMIN HUMAN 25% 100 ML IV SCH (13:50)
[2024-09-01 15:19] LABS: PCO2 ABG 73 mmHg (35-45); PO2 ABG 78 mmHg (60-100); pH ABG 7.34 (7.35-7.45)
[2024-09-01 15:20] LABS: Base Excess ABG 10.8 mmo1/L (-2-2); Oxygen Saturation ABG 95 % (92-100)
[2024-09-01 16:12] LABS: PCO2 ABG 72 mmHg (35-45); PO2 ABG 62 mmHg (60-100); pH ABG 7.35 (7.35-7.45)
[2024-09-01 16:13] LABS: Base Excess ABG 11.3 mmo1/L (-2-2); Oxygen Saturation ABG 90 % (92-100)
[2024-09-01 19:05] VITALS: BP 159/71; PULSE 61; RESP 26; TEMP 97.1
--- NOTE | 2024-09-02 13:42 | Discharge Summary ---
DS: Providers Provider Date of admission: 08/28/24 17:49 Primary care physician: Izabela Lira DO Admitting clinician: Izabela Lira Attending physician on admission: Deep Haq Consults: 09/01/24 09:43 Consult to Occupational Therapy Routine Comment: Consulting Provider: Reason for consultation: weakness Physician Instructions: evaluate and treat Consult to Physical Therapy Routine Comment: Consulting Provider: Reason for consultation: weakness Physician Instructions: evaluate and treat and ambulate Attending physician on discharge: Izabela Lira Discharging clinician: Izabela Lira Anticipated date of discharge: 09/01/24 DS: Diagnosis Discharge Diagnosis (1) Chronic respiratory failure with hypoxia and hypercapnia: (2) COPD exacerbation: (3) CHF (congestive heart failure): Qualifiers: Heart failure type: combined systolic and diastolic Heart failure chronicity: acute on chronic Qualified Code(s): 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: (5) Hypoxia: (6) Hypokalemia: (7) HTN (hypertension): Qualifiers: Hypertension type: primary hypertension Qualified Code(s): I10 - Essential (primary) hypertension (8) Diabetes: Qualifiers: Diabetes mellitus type: type 2 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 Diabetes mellitus complication status: with kidney complications Diabetes mellitus complication detail: with chronic kidney disease Chronic kidney disease stage: stage 5 (GFR < 15), not on chronic di alysis Qualified Code(s): E11.22 - Type 2 diabetes mellitus with diabetic chronic kidney disease; N18.5 - Chronic kidney disease, stage 5; 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 Constitutional: abnormal general appearance (disheveled), (chronically ill) and (frail appearing), distress noted (moderate), (severe) and (respiratory), abnormal body habitus (obese), limitations noted and alert Vital Signs - 24 hr 09/01/24 14:29 09/01/24 15:12 09/01/24 15:32 Temperature Pulse Rate 84 Pulse Rate [Bilate ral] Respiratory Rate Blood Pressure [Ri ght Arm] Pulse Oximetry 96 Oxygen Delivery Me thod Fraction of Inspir ed Oxygen 50 50 09/01/24 16:00 09/01/24 16:15 09/01/24 19:04 Temperature 98.7 F 97.1 F L Pulse Rate 87 Pulse Rate [Bilate ral] 67 61 Respiratory Rate 25 H 26 H Blood Pressure [Ri ght Arm] 169/66 159/71 Pulse Oximetry 98 96 Oxygen Delivery Me thod BiPAP BiPAP Fraction of Inspir ed Oxygen 50 HENMT: normocephalic, head/scalp atraumatic, hearing grossly normal bilaterally, external ears normal, EACs normal, TMs abnormal, nasal mucous membranes normal, external nose normal, oral mucous membranes abnormal, dentition abnormal and gingiva abnormal Eyes: PERRL, EOMs intact bilaterally, conjunctivae normal, no scleral icterus, no papilledema, fundi normal bilaterally, alignment normal and periorbital findings normal Neck/C-Spine: trachea midline, cervical spine nontender, abnormal cervical ROM noted, not supple, no meningeal signs, thyroid normal and no carotid bruits Chest: inspection of chest normal and palpation of chest normal Respiratory: breath sounds unequal, abnormal respiratory effort (labored), clear to auscultation bilaterally, wheezing noted, rales noted, retractions noted, use of accessory muscles noted and chest percussion normal Bilateral wheezing Cardiovascular: heart rate abnormal (bradycardic), rhythm abnormal, no gallop, no rub, murmur noted, no JVD, no clicks, peripheral pulses as noted: and bruit(s) noted Gastrointestinal: abdomen normal to inspection, abdomen soft to palpation, nontender to palpation, nondistended, normoactive bowel sounds, hepatosplenomegaly noted, no masses, no pulsatile mass, ascites noted and no hernia Genitourinary: no CVA tenderness, bladder normal to palpation, external appearance normal and penis abnormal Back/Pelvis: spine abnormal to inspection, no thoracic spine tenderness, no lumbar spine tenderness, thoracic spine ROM abnormal and lumbar spine ROM abnormal Extremities: abnormal to inspection (+2-3 BLE edema), abnormal to palpation, tenderness noted, abnormal ROM noted, joint enlargement noted and deformity noted +2 edema BLE, +3 BUE edema Neurology: car rider II-XII intact, no movement abnormality noted, no focal motor deficit noted, sensory deficit noted, deep tendon reflexes as noted:, gait abnormality noted, speech normal, coordination normal and GCS normal Psychiatry: mental status grossly normal, oriented x3, thought process abnormality noted, uncooperative, affect abnormality noted (depressed) and memory abnormal Feel stressed/tense/nervous/anxious/difficulty sleeping: not at all Skin: skin color normal, no rash, no lesions, ecchymosis noted, no wounds, no lacerations, skin turgor abnormal, no jaundice, no petechiae, no mottling, nails abnormality noted and alopecia noted DS: Data Data Completed and Pending Labs on day of discharge: Labs from last 24 hours 09/01/24 09/01/24 09/01/24 15:55 15:55 15:18 ABG pH 7.35 ABG pCO2 72 H* ABG pO2 267 62 265 ABG PO2/FiO2 Ratio 0.23 0 ABG HCO3 39.7 H 39.4 H ABG Total CO2 41.9 41.6 ABG O2 Saturation 90 L 95 ABG Base Excess 11.3 H* 10.8 H* A-a O2 Gradient 205 187 Respiratory Index 3.3 H 2.4 H Vent Mode Bipap 16/8 Bipap 12/6 FiO2 50 50 09/01/24 09/01/24 09/01/24 15:18 13:30 13:30 ABG pH 7.34 L 7.35 ABG pCO2 73 H* 71 H* ABG pO2 78 168 54 L* ABG PO2/FiO2 Ratio 0.32 ABG HCO3 39.2 H ABG Total CO2 41.4 ABG O2 Saturation 86 L* ABG Base Excess 10.8 H* A-a O2 Gradient 114 Respiratory Index 2.1 H Vent Mode FiO2 36 Imaging Chest x-ray: Attestation: I have reviewed the pertinent imaging results. Radiologist's impression: XR CHEST 2V HISTORY: pneumonia, chfpneumonia, chf; COMPARISON: 08/29/2024 FINDINGS: AP projection is mismarked left to right. Abnormal opacity in the lower lungs could be atelectasis or pneumonia. A small pleural effusion is seen posteriorly, but not well appreciated on the frontal view. Probably on the left side. Cardiomegaly is present. The bones are unremarkable. EKG leads are noted. IMPRESSION: 1. Basilar atelectasis or pneumonia 2. Small pleural effusion, probably left side 3. Cardiomegaly Discharge Plan Discharge Disposition: Xfer Short-Term Hosp Condition: Stable Anticipated Discharge Date/Time: 09/01/24 17:42 Discharge Medications: No Action glipizide 10 mg tablet 10 mg PO BID Patient Comments: TAKE 1 TABLET BY MOUTH TWICE DAILY nifedipine 30 mg tablet extended release 30 mg PO DAILY Patient Comments: TAKE 1 TABLET BY MOUTH ONCE DAILY ON AN EMPTY STOMACH amlodipine 5 mg tablet 5 mg PO DAILY simvastatin 40 mg tablet 40 mg PO BEDTIME Patient Comments: TAKE 1 TABLET BY MOUTH ONCE DAILY AT BEDTIME carvedilol 3.125 mg tablet 3.125 mg PO BID Patient Comments: TAKE 1 TABLET BY MOUTH TWICE DAILY tamsulosin 0.4 mg capsule 0.4 mg PO BID Patient Comments: TAKE 1 CAPSULE BY MOUTH TWICE DAILY amlodipine-benazepril 10-40 mg capsule 1 cap PO DAILY Patient Comments: TAKE 1 CAPSULE BY MOUTH ONCE DAILY SPS (with sorbitol) 15-20 gram/60 mL suspension 30 ml PO BID omeprazole 40 mg capsule,delayed release(DR/EC) 40 mg PO DAILY Patient Comments: TAKE 1 CAPSULE BY MOUTH ONCE DAILY gabapentin 100 mg capsule 100 mg PO BID Patient Comments: TAKE 1 CAPSULE BY MOUTH TWICE DAILY Activity: as per physical therapy Diet: other Interventions: Discharge Assessment Last Done: 09/01/24 19:31 MED/SURG & ICU Observation Charge Sheet Last Done: 09/01/24 19:31 Print Language: French Follow-Ups: Izabela Lira DO [Primary Care Provider] - 09/06/24 9:30 am Discharge Date/Time: 09/01/24 19:31
--- NOTE | 2024-09-08 12:07 | Echocardiogram Report ---
Study Quality: Good Indications / History: CHF, COPD. Diagnosis/CPT Code(s): TTE - 2D w/ or w/o M-Mode Complete (67054). Echo Dimensions Ao Root Tiara (M-Mode): 4 cm LA Dimen (M-Mode): 5.4 cm IVS(D) (M-Mode): 1.51 cm IVS(D) (2D): 1.6 cm LVPW(D) (M-Mode): 1.55 cm LVPW(D) (2D): 1.5 cm LV(D) (M-Mode): 5.83 cm LV(D) (2D): 5.8 cm LV(S) (M-Mode): 4.71 cm LV(S) (2D): 4.4 cm Asc Ao Tiara (2D): 3.2 cm RV(D (2D): 3.4 cm LVOT (2D): 2.2 cm AV opening (M-Mode): 2 cm EF (M-Mode): 39 % EF (2D): 40 % RVSP (Doppler): 64 mmHg Doppler ------- * Aortic Valve LVOT Peak Gradient: 3 mmHg. LVOT Peak Velocity: 0.8 m/s. LVOT Mean Grad: 1 mmHg. LVOT VTI: 20.1 cm. LVOT/AV VTI: 0.46. AV Peak Velocity: 2.13 m/s. AV Peak Gradient: 18 mmHg. AV Mean Gradient: 10 mmHg. AV VTI: 56.3 cm. * Mitral Valve MV Area (PHT): 4.49 cm2. MV Peak E Joel: 0.77 m/s. MV Peak A Joel: 1.22 m/s. E/A: 0.6. MV PHT: 49 ms. MV Dec T: 168 ms. * Diastolic Functions / TDI E/e' medial: 16.1. E/e' lateral: 9.6. E/e' average: 12.85. Peak e' medial joel: 4.79 cm/s. Peak e' lateral joel: 8.05 cm/s. * Tricuspid Valve RVSP: 64 mmHg. RA Pressure: 10 mmHg. TR Peak Grad: 54 mmHg. TV Regurg.Peak Joel: 3.66 m/s. Findings -------- Left Ventricle LV chamber is mildly dilated. LV wall thickness is mild to moderately increased. LV systolic function is moderately reduced. The estimated left ventricular ejection fraction is 35-40% (abnormal). Doppler evidence for Grade I diastolic dysfunction. Right Ventricle There is normal right ventricular size, wall dimension, and systolic function. Left Atrium Left Atrium chamber is mildly to moderately dilated. LA diameter is 5.4 cm. Right Atrium RA chamber size is normal. Aortic Valve There is a trileaflet aortic valve. There is diffuse aortic valve thickening. There is trace aortic regurgitation. There is no aortic valve stenosis. Mitral Valve The mitral valve leaflet is mildly thickened. There is moderate mitral regurgitation. There is no mitral stenosis. Tricuspid Valve Tricuspid valve is structurally normal. There is moderate tricuspid regurgitation. Estimated RVSP systolic pressure is 64 mmHg. Pulmonary Valve There is normal pulmonic valve structure and function. There is no pulmonic regurgitation. Pericardium The pericardium is normal. There is a small pericardial effusion. Aorta The aortic root is mildly dilated. Aortic Root diameter (M-mode) is 4 cm. The pulmonary artery is dilated, measuring 3.7 cm. The right pulmonary artery branch is dilated, measuring 1.8 cm. The left pulmonary artery branch is dilated, measuring 2.1 cm. Thrombus/Mass There is no intracardiac mass or thrombus identified. Impressions * M-mode, 2-D echocardiogram is performed with cardiac doppler including, spectral doppler (continuous wave and pulse wave) and color flow. There is no evidence of intracavitary mass or thrombus. Right heart pressure is 64 mmHg. * LVEF (abnormal): 35-40%. * Dilated left ventricular chamber. * Mild to moderate concentric LV hypertrophy. * Doppler evidence for Grade I diastolic dysfunction. * Normal right ventricular size and function. * Mild to moderate left atrial enlargement. * Trivial aortic regurgitation. * Moderate mitral regurgitation. * Moderate tricuspid regurgitation. * The aortic root is mildly dilated. * Small pericardial effusion. * There are no prior studies available for comparison. Electronically signed by: Navi Delgado MD 09/08/2024 11:38 AM [facility]
== END 2024-09-01 19:31 | disposition short-term general hospital (02) | DRG 291 ==
LOC: ED 14:33 → MS 14:33 → OBSVTOIN 17:49 → MS 18:24
PROVIDERS: ADMIT Nurse Practitioner; ATTEND Nurse Practitioner
DX: Z79.4 Long term (current) use of insulin; I13.2 Hypertensive heart and chronic kidney disease with heart failure and with stage 5 chronic kidney disease, or end stage renal disease; I50.43 Acute on chronic combined systolic (congestive) and diastolic (congestive) heart failure; E11.22 Type 2 diabetes mellitus with diabetic chronic kidney disease; J96.11 Chronic respiratory failure with hypoxia; N40.1 Benign prostatic hyperplasia with lower urinary tract symptoms; Z66 Do not resuscitate; I25.10 Atherosclerotic heart disease of native coronary artery without angina pectoris; F03.90 Unspecified dementia, unspecified severity, without behavioral disturbance, psychotic disturbance, mood disturbance, and anxiety; J44.1 Chronic obstructive pulmonary disease with (acute) exacerbation; E78.2 Mixed hyperlipidemia; Z87.891 Personal history of nicotine dependence; E87.6 Hypokalemia; J96.12 Chronic respiratory failure with hypercapnia; N18.5 Chronic kidney disease, stage 5; K59.09 Other constipation; R33.8 Other retention of urine; I25.2 Old myocardial infarction; K70.9 Alcoholic liver disease, unspecified; N17.9 Acute kidney failure, unspecified